=== PATIENT | male | born 1955 | race Caucasian/White ===

== ENCOUNTER 2022-09-27 19:50 | Emergency (ER) | payer MEDICARE, OTHER, SELFPAY ==
[2022-09-27 19:55] VITALS: BP 132/44; PULSE 91; RESP 14; TEMP 37.1; O2SAT 98
[2022-09-27] MEDS: cefTRIAXone 1 GM/50 ML BAG IVPB (21:36)
--- NOTE | 2022-09-27 22:05 | ED.GENADUL_ITS ---
Discharge Plan Disposition Patient Disposition: Home Discharge Details Clinical Impression: Cellulitis of left lower extremity ED Provider: Evert Sawyer Home Meds and New Rx's Prescriptions: New cephalexin 500 mg tablet 500 mg PO QID 7 Days Qty: 28 0RF Continued baclofen 10 mg Tablet 10 mg PO TID amantadine HCl 100 mg Tablet 100 mg PO BID pramipexole 1 mg Tablet 1 mg PO QHS gabapentin 600 mg Tablet 600 mg PO QHS pramipexole 0.25 mg Tablet 0.25 mg PO QPM Rx Instructions: administer 2 - 3 hours before bedtime 1 TAB AT 4:30PM, 2 TABS AT 930PM tadalafil 20 mg Tablet 20 mg PO DAILY PRN Rx Instructions: administer approximately 30min before sexual activity; do not use more than 1 dose per 24hrs dalfampridine 10 mg Tablet Extended Release 12 Hr 10 mg PO BID Myrbetriq 50 mg Tablet Extended Release 24 Hr 50 mg PO DAILY Discharge Instructions Instructions: Cellulitis (ED) Additional Instructions: Please continue to monitor symptoms and if you develop any fever chills, streaking redness coming up the leg or into the thigh, severe worsening of your condition or further concerns feel free to return the emergency department for reassessment. Otherwise take medication as prescribed and follow-up with your primary care provider if not improving in the next 3 days. Referrals: Primary Care Provider [Outside] - 3 days (As needed or if not improving) Discharge Data Discharge Date/Time-TO BE ENTERED AT DEPARTURE: 09/27/22 22:25 Medical Decision Making Acute cellulitis left lower extremity, no streaking, no systemic symptoms, patient does have history of MS and there is slight abrasion that may be source of cellulitis. Patient is not on any immune modulators or immunosuppressants. Given that symptoms have rapidly progressed over the last 24 hours we will give single dose of ceftriaxone and start patient on Keflex on outpatient basis. I do not feel that labs will be beneficial given the patient is otherwise stable and is not septic. Return follow-up precautions discussed. After discussion of diagnosis and plan of care patient has no further needs, questions, or concerns and states clear understanding to return to the emergency department for any worsening symptoms. This documentation was generated using [employer] system, please disregard any oddities of phrase or misspellings. HPI General Mode of arrival: ambulatory . Date/Time Provider Initiated Documentation: 09/27/22 21:05 . Limitations to Documentation: no limitations . Information obtained by: patient and RN notes reviewed . History of Present Illness 66 year old M presents to the emergency department with the chief complaint of Redness left foot and ankle, described as moderate, Quality is described as aching, and is localized to the left and lower extremity. Patient reports no radiation. Patient started experiencing this day(s) (1) Related Data Home Medications Medication Instructions Recorded Confirmed amantadine HCl 100 mg tablet 100 mg PO BID 09/27/22 09/27/22 baclofen 10 mg tablet 10 mg PO TID 09/27/22 09/27/22 cephalexin 500 mg tablet 500 mg PO QID 7 days #28 tabs 09/27/22 dalfampridine 10 mg 10 mg PO BID 09/27/22 09/27/22 tablet,extended release,12 hr gabapentin 600 mg tablet 600 mg PO QHS 09/27/22 09/27/22 mirabegron 50 mg tablet,extended 50 mg PO DAILY 09/27/22 09/27/22 release 24 hr (Myrbetriq) pramipexole 0.25 mg tablet 0.25 mg PO QPM 09/27/22 09/27/22 pramipexole 1 mg tablet 1 mg PO QHS 09/27/22 09/27/22 tadalafil 20 mg tablet 20 mg PO DAILY PRN 09/27/22 09/27/22 Previous Rx's Medication Instructions Recorded cephalexin 500 mg tablet 500 mg PO QID 7 days #28 tabs 09/27/22 Allergies Allergy/AdvReac Type Severity Reaction Status Date / Time propoxyphene [From Darvon] AdvReac Unverified 09/27/22 20:02 General Stated Complaint: Cellulitis GARCÍA: 3 Review of Systems Constitutional Constitutional: Denies chills, Denies fever(s) and Reports malaise Cardiovascular Cardiovascular: Denies chest pain and Denies dyspnea Respiratory Respiratory: Denies cough and Denies dyspnea Gastrointestinal Gastrointestinal: Denies abdominal pain, Denies nausea and Denies vomiting Musculoskeletal Musculoskeletal: Reports as per HPI Integumentary/Breasts Skin/Breast: Reports erythema, Reports skin pain and Reports skin swelling PFSH All Active Problems (Updated 09/27/22 @ 22:05 by Evert Sawyer NP) Cellulitis of left lower extremity (Acute) Social History Smoking/Tobacco Use Status: Never Smoking risk assessment performed?: Yes Alcohol Intake: current Alcohol Intake frequency: a few times a week Alcohol type: wine Substance use type: does not use Housing: house Do you feel safe at home: Yes Do you feel safe in your relationship?: Yes Exam Const General: cooperative, no acute distress and not ill appearing Orientation: alert, awake and oriented x3 HENMT Mouth: moist mucous membranes Resp Effort & Inspection: normal respiratory effort, able to speak in complete sentences and no respiratory distress Auscultation: clear to auscultation bilaterally Cardio Rate: regular rate Rhythm: regular rhythm Heart Sounds: S1 normal and S2 normal Pulses: normal peripheral pulses Skin General skin exam: no rashes or lesions noted Neuro General: patient alert, patient awake, patient oriented x3, moves all extremities and no focal motor deficits Sensory Exam: no sensory deficits noted Extrem General: normal exam except as noted Left lower extremity: ankle Details: abnormal to inspection Details: erythematous, tenderness, swelling, normal ROM and warmth Course Vital Signs Vital signs: Vital Signs Temperature 37.1 C 09/27/22 19:55 Pulse 91 H 09/27/22 19:55 Respiratory Rate 14 09/27/22 19:55 Blood Pressure 132/44 L 09/27/22 19:55 Pulse Oximetry 98 09/27/22 19:55 Temperature 37.1 C 09/27/22 19:55 Temperature Source Temporal Artery Scan 09/27/22 19:55 Pulse 91 H 09/27/22 19:55 Respiratory Rate 14 09/27/22 19:55 Respiratory Effort Normal 09/27/22 20:10 Blood Pressure 132/44 L 09/27/22 19:55 Blood Pressure Position Sitting 09/27/22 19:55 Pulse Oximetry 98 09/27/22 19:55 Oxygen Delivery Method Room Air 09/27/22 19:55 Oxygen Flow Rate 0 09/27/22 19:55 Pain Level 7 09/27/22 19:55 PAWSS Have you Been Recently Intoxicated or Drunk Within the Last 30 days?: No Have you Ever Experienced Previous Episodes of Alcohol Withdrawal?: No Have you ever Experienced Withdrawal Seizures?: No Have you ever Experienced Delirium Tremens(DT)s?: No Have you ever undergone Alcohol Rehabilitation Treatment (i.e, inpt ot outpatient treatment programs)?: No Have you ever Experienced Blackouts?: No Have you ever Combined Alcohol with other Downers within the last 90 days?: No Have you ever Combined Alcohol with any other Substance of Abuse during the last 90 days?: No Positive Blood Alcohol level on Presentation? [PCS.BAL]: No Evidence of Increased Autonomic Activity (i.e. HR>120, tremor, sweating, agitation, nausea)?: No Result: 0
[2022-09-27 22:23] VITALS: BP 117/54; PULSE 84; RESP 16; TEMP 36.8; O2SAT 97
== END 2022-09-27 22:25 | disposition home or self-care (01) ==
PROVIDERS: Emergency Provider Nurse Practitioner Family
DX: L03.116 Cellulitis of left lower limb (principal); G35 Multiple sclerosis
CPT/HCPCS: 96365; 99283; 99282; J0696